=== PATIENT | male | born 1995 | race Caucasian/White ===

== ENCOUNTER 2019-02-20 11:55 | Outpatient (CLI) | payer OTHER, SELFPAY ==
[2019-02-21 11:34] LABS: HIV-1/2 Ag & Ab Screen Negative (NEGAT); Hepatitis A Antibody IgM Negative (NEGAT); Hepatitis B Core Antibody Negative (NEGAT); Hepatitis B surface Ag Negative (NEGAT); Hepatitis C Ab w Rflx HCV PCR Negative (NEGAT)
== END 2019-02-20 12:15 ==
PROVIDERS: PCP Nurse Practitioner; Visit Provider Nurse Practitioner
DX: Z11.3 Encounter for screening for infections with a predominantly sexual mode of transmission; F32.9 Major depressive disorder, single episode, unspecified; Z11.4 Encounter for screening for human immunodeficiency virus [HIV]; Z11.59 Encounter for screening for other viral diseases
CPT/HCPCS: 36415; 86704; 86709; 86803; 87340; 87389; 84443